=== PATIENT | female | born 1980 | race Caucasian/White ===

== ENCOUNTER 2020-10-13 21:29 | Emergency (ER) | payer OTHER, SELFPAY ==
[2020-10-13 21:30] VITALS: BP 133/71; PULSE 102; RESP 14; TEMP 36.7; O2SAT 99; BMI 25.0
--- NOTE | 2020-10-13 22:43 | ED_ITS ---
HPI - Wound/Laceration General Chief Complaint: Wound/Laceration Stated Complaint: Cut on Finger Time Seen by Provider: 10/13/20 22:18 Source: patient Mode of arrival: Ambulatory Limitations: no limitations History of Present Illness HPI narrative: Patient is a 40-year-old female who presents with left thumb laceration. She says that she was cutting a watermelon when she cut the very distal tip of her left thumb. She has been holding pressure for at least an hour half and the bleeding has stopped. She denies any numbness or tingling. She states her tetanus is likely up-to-date his. Related Data Home Medications Medication Instructions Recorded Confirmed nortriptyline 50 mg capsule 50 mg PO DAILY 12/30/18 10/06/20 vitamin B complex 1 tab PO DAILY 12/30/18 10/06/20 biotin 10,000 mcg PO BID 08/10/20 10/06/20 levothyroxine 200 mcg tablet 122 mcg PO DAILY tab 08/10/20 10/06/20 Previous Rx's Medication Instructions Recorded eszopiclone 1 mg tablet 1 mg PO BEDTIME PRN #30 tab MDD 1 10/06/20 mg modafinil 100 mg tablet 100 mg PO QAM #30 tab 10/06/20 Allergies Allergy/AdvReac Type Severity Reaction Status Date / Time No Known Drug Allergies Allergy Verified 10/13/20 21:33 Review of Systems Review of Systems Narrative: GENERAL: Denies chills,fever HEENT: Denies throat pain RESPIRATORY: Denies dyspnea, cough, wheezing CARDIOVASCULAR: Denies chest pain, palpitations GASTROINTESTINAL: Denies nausea, vomiting MUSCULOSKELETAL: Denies extremity pain, injury SKIN: See HPI NEUROLOGIC: Denies weakness, dizziness, headache, numbness 8 point review of systems is negative except for those stated above and HPI Patient History Medical History Hypothyroidism Idiopathic hypersomnia Primary insomnia Family History Mother Alcohol abuse Father Hypertension Obesity Insomnia Family/Other CAD (coronary artery disease) Depression Anxiety Bipolar disorder Grandfather Dementia Social History Smoking Status: Never smoker Smoking Status: Never smoker alcohol intake frequency: holidays/special occasions only Substance Use Type: does not use Exam Initial Vital Signs Initial Vital Signs: Vital Signs Temperature 98.0 F 10/13/20 21:30 Pulse Rate 102 H 10/13/20 21:30 Respiratory Rate 14 10/13/20 21:30 Blood Pressure 133/71 10/13/20 21:30 Pulse Oximetry 99 10/13/20 21:30 GENERAL: Well-appearing, well-nourished and in no acute distress. CARDIOVASCULAR: peripheral pulses in tact, cap refill <2 sec RESPIRATORY: No respiratory distress, speaks in full sentences without difficulty EXTREMITIES: Normal range of motion, no clubbing or edema. Neurovascularly intact NEUROLOGICAL: Cranial nerves II through XII grossly intact. Normal gait and speech. SKIN: Left thumb 0.5 cm laceration very distal tip small portion of it goes underneath the nail but the nail itself is not involved. Procedures Laceration Repair Laceration 1: Site: hand Side (If applicable): left (Thumb) Size (cm): 0.5 Description: linear Depth: simple, single layer Skin layer closed with: steri-strips Course Vital Signs Vital signs: Vital Signs - 8 hr 10/13/20 21:30 Temperature 98.0 F Pulse Rate 102 H Respiratory Rate 14 Blood Pressure 133/71 Pulse Oximetry 99 Discharge Plan Departure Patient Disposition: Home Clinical Impression: Laceration Instructions: DI for Laceration Repair-Skin Closure Strips Activity Restrictions/Additional Instructions: *You have been diagnosed with left thumb laceration *What to do: At this times but Steri-Strips fall off on its own. Monitor for redness pus or swelling *Continue to take medications as directed Tylenol 650 mg every 4-6 hours if needed for pain Ibuprofen 800 mg every 8 hours if needed for pain *Follow up with your primary care provider in 2-3 days \ *Return to ER if you should have redness pus or swelling or any new, worsening or concerning symptoms Prescriptions: No Action nortriptyline 50 mg capsule 50 mg PO DAILY RF: 0 vitamin B complex [B Complex-Vitamin B12] tablet 1 tab PO DAILY RF: 0 levothyroxine [Synthroid] 200 mcg tablet 122 mcg PO DAILY RF: 0 biotin 10,000 mcg PO BID RF: 0 eszopiclone 1 mg tablet 1 mg PO BEDTIME MDD 1 mg PRN (Reason: insomnia) Qty: 30 RF: 1 modafinil 100 mg tablet 100 mg PO QAM Qty: 30 RF: 1 Referrals: [facility] [Outside]
== END 2020-10-13 23:25 | disposition home or self-care (01) ==
PROVIDERS: Emergency Provider Emergency Medicine
DX: S61.012A Laceration without foreign body of left thumb without damage to nail, initial encounter (principal); W26.0XXA Contact with knife, initial encounter
CPT/HCPCS: 99282

== ENCOUNTER 2021-05-15 21:23 | Emergency (ER) | payer OTHER, SELFPAY ==
[2021-05-15 21:24] VITALS: BP 157/91; PULSE 91; RESP 16; TEMP 36.9; O2SAT 100
== END 2021-05-15 23:33 | disposition left against medical advice (07) ==
PROVIDERS: Emergency Provider Emergency Medicine
DX: Z53.21 Procedure and treatment not carried out due to patient leaving prior to being seen by health care provider (principal)
CPT/HCPCS: 99281

== ENCOUNTER → 2021-06-13 08:31 | Outpatient (CLI) | payer OTHER, SELFPAY ==
[2021-06-13 11:48] LABS: COVID19 -Nasal RAPID Negative (Negative)
== END ==
PROVIDERS: Visit Provider Physician Assistant
DX: Z20.822 Contact with and (suspected) exposure to COVID-19 (principal)
CPT/HCPCS: 87635

== ENCOUNTER → 2021-06-27 13:49 | Outpatient (CLI) | payer OTHER, SELFPAY ==
[2021-06-27 15:22] LABS: COVID19 -Nasal RAPID Negative (Negative)
== END ==
PROVIDERS: Referring Provider Nurse Practitioner Family; Visit Provider Nurse Practitioner Family
DX: Z01.812 Encounter for preprocedural laboratory examination (principal); Z20.822 Contact with and (suspected) exposure to COVID-19
CPT/HCPCS: 87635

== ENCOUNTER → 2021-06-28 15:04 | Outpatient (CLI) | payer OTHER, SELFPAY ==
--- NOTE | 2021-06-29 21:06 | DI.NM.S_ITS ---
DATE OF SERVICE: 06/28/2021 PROCEDURE PERFORMED: Exercise treadmill stress test without imaging. ORDERING PROVIDER: Dr. Serina Shirley. INDICATIONS: The patient is a 40-year-old female with chronic dizziness and syncope. FINDINGS: 1. The patient was able to exercise for 9 minutes, 12 seconds on a standard C[place]ar protocol suggesting average exercise capacity with an CLAUDE of -1%, achieving 10.1 METs. 2. She had a normal hemodynamic response to exercise with a resting heart rate of 99 BPM that increased to a maximum of 181 BPM (100% of her predicted maximum) and a resting blood pressure of 120/82 that increased to 180/96. 3. She had no chest pain or change in her chronic subjective dizziness during or after exercise. 4. Her resting ECG shows sinus rhythm with normal ST segments. There are no significant ST-segment shifts or arrhythmias with exercise. IMPRESSION: 1. Normal exercise treadmill study for ischemia. 2. Average exercise capacity without angina and a normal hemodynamic response to exercise. Kelsey Burk - OSMAR/deandra/margarita doc#: [id number]/job#: [id number] dd: 06/29/2021 17:26:00 dt: 06/29/2021 20:03:00 DICTATING MD/COPIES TO: Sebastian Bella MD; Serina Shirley M.D. COPIES MNE: HERLINDA;
== END ==
PROVIDERS: Referring Provider Internal Medicine Cardiovascular Disease; Visit Provider Internal Medicine Cardiovascular Disease
DX: R42 Dizziness and giddiness (principal); R55 Syncope and collapse
CPT/HCPCS: 93017

== ENCOUNTER → 2021-07-11 09:19 | Outpatient (CLI) | payer OTHER, SELFPAY ==
--- NOTE | 2021-07-11 | DI.ECHO.S_ITS ---
[facility]---------+ [facility] +---------+ : : [address] [place] : : : : [id number] : : : : Phone: [phone]+ Echocardiogram Report + + :Name: CELSA ESPINOSA Study Date: 07/11/2021 Height: 67 in : :[facility] ReadingLocation: Weight: 180 lb : : Gender: Female BSA: 1.9 m2 : :: 1980 Age: 41 yrs BP: 129/89 mmHg: :Reason For Study: DIZZINESS AND GIDDINESS : :Ordering Physician: TERELL, : :SERINA Abreu Performed By: Laine Doyle : :Referring: SERINA SHIRLEY : + + Interpretation Summary The ejection fraction is estimated to be 55-60%. Diastolic parameters suggest probable normal left ventricular diastolic function and normal filling pressures. The right ventricle is normal in size and function. No significant valvular abnormalities. Pulmonary artery pressures cannot be estimated because of the lack of a measurable TR jet velocity. Procedure: A two-dimensional transthoracic echocardiogram with color flow and Doppler was performed. The study quality was technically adequate. There is no prior echocardiogram noted for this patient. The patient was in sinus rhythm with heart rates between 86-100 bpm during the exam. Left Ventricle: The left ventricle is normal in size and wall thickness. The ejection fraction is estimated to be 55-60%. Diastolic parameters suggest probable normal left ventricular diastolic function and normal filling pressures. Right Ventricle: The right ventricle is normal in size and function. Atria: The left atrial size is normal. Right atrial size is normal. There is no Doppler evidence for an interatrial shunt. Mitral Valve: The mitral valve is normal in structure and function. There is no mitral regurgitation noted. Aortic Valve: The aortic valve is trileaflet. The aortic valve opens well. There is no aortic valve stenosis. No aortic regurgitation is present. Tricuspid Valve: The tricuspid valve is normal in structure and function. There is trace tricuspid regurgitation. Pulmonary artery pressures cannot be estimated because of the lack of a measurable TR jet velocity. Pulmonic Valve: The pulmonic valve is not well visualized. There is no pulmonic valvular regurgitation. Great Vessels: The aortic root is normal size. The dimensions of the ascending aorta are normal. The IVC is of normal diameter and collapses greater than 50% with a sniff. This suggests a low right atrial pressure of 3 mm Hg. Pericardium/ Pleura There is no pericardial effusion. There is no pleural effusion. MMode/2D Measurements & Calculations LVIDd: 4.7 cm LVOT diam: 2.0 cm LVIDs: 3.2 cm Ao root diam: 3.4 cm FS: 32.9 % asc Aorta Diam: 2.9 cm IVSd: 0.65 cm Ao Arch Diam (Prox Trans): 2.4 cm LVPWd: 0.61 cm LV taveras. diameter/BSA (cm/m^2): 2.4 LV sys. diameter/BSA (cm/m^2): 1.6 LA A2 area: 16.2 cm2 RA long axis: 3.9 cm LA A4 area: 15.4 cm2 RA area: 10.9 cm2 LA length (vol): 4.8 cm RA vol: 25.9 ml LA vol: 44.5 ml RA : 13.4 ml/m2 LA vol index: 23.0 ml/m2 IVC diam: 1.6 cm RVD1 (basal): 3.4 cm TAPSE: 2.2 cm Doppler Measurements & Calculations Ao V2 max: 115.4 cm/sec LVOT Max Sidney: 92.6 cm/sec Ao V2 mean: 80.4 cm/sec LV V1 max P.4 mmHg Ao max P.3 mmHg LV V1 VTI: 16.1 cm Ao mean P.8 mmHg PATTY(I,D): 2.3 cm2 Ao V2 VTI: 22.6 cm PATTY(V,D): 2.6 cm2 sev ratio: 0.71 PATTY indexed to BSA (cm^2/m^2): 1.2 MV E max sidney: 65.8 cm/sec PA V2 max: 101.6 cm/sec MV A max sidney: 53.5 cm/sec PA V2 mean: 67.0 cm/sec MV E/A: 1.2 PA mean P.1 mmHg Med Peak E' Sidney: 10.8 cm/sec PA pr(Accel): 27.6 mmHg E/E' med: 6.1 Lat Peak E' Sidney: 13.4 cm/sec E/E' lat: 4.9 E/e' average: 5.5 MV dec time: 0.18 sec SV(LVOT): 52.9 ml Reading Physician:11:50 AM
== END ==
PROVIDERS: Referring Provider Internal Medicine Cardiovascular Disease; Visit Provider Internal Medicine Cardiovascular Disease
DX: R42 Dizziness and giddiness (principal)
CPT/HCPCS: 93306